=== PATIENT | female | born 1985 | race Caucasian/White ===

== ENCOUNTER → 2018-02-17 | Outpatient (CLI) | payer MEDICAID | LOC: HPND 08:00 | PROVIDERS: ATTEND Obstetrics & Gynecology | DX: O09.522 Supervision of elderly multigravida, second trimester (principal); O28.5 Abnormal chromosomal and genetic finding on antenatal screening of mother; O24.410 Gestational diabetes mellitus in pregnancy, diet controlled | CPT/HCPCS: 59000; 76811; 76825; 76827; 76946; 93325 ==